=== PATIENT | male | born 1985 | race Native Hawaiian/Other Pacific Islander ===

== ENCOUNTER 2018-06-15 21:21 | Outpatient (CLI) | payer OTHER | END 2018-06-15 21:24 | disposition short-term general hospital (02) | LOC: AMB 21:21 | DX: R07.89 Other chest pain (principal); M79.622 Pain in left upper arm | CPT/HCPCS: A0425; A0427 ==

== ENCOUNTER 2018-06-15 21:35 | Emergency (ER) | payer OTHER ==
[~2018-06-15] VITALS: Ht 162.6 cm; Wt 83.9 kg
[2018-06-15 23:02] LABS: POTASSIUM 3.3 mmol/L (3.6-5.2); SODIUM 143 mmol/L (136-145)
[2018-06-15 23:03] LABS: PLATELET COUNT 415 K/uL (142-355)
[2018-06-16 01:18] VITALS: BP 147/86; TEMP 98.1
== END 2018-06-16 01:19 | disposition home or self-care (01) ==
LOC: ED 21:35
PROVIDERS: Family Medicine
DX: R07.89 Other chest pain (principal); F19.10 Other psychoactive substance abuse, uncomplicated; I48.91 Unspecified atrial fibrillation
CPT/HCPCS: 36415; 80053; 80307; 81000; 82550; 82553; 84484; 85027; 93005; 99283

== ENCOUNTER 2020-11-17 18:48 | Emergency (ER) | payer OTHER ==
[~2020-11-17] VITALS: Ht 165.1 cm; Wt 89.4 kg
[2020-11-17 19:50] VITALS: BP 148/76; TEMP 98.9
== END 2020-11-17 19:59 | disposition home or self-care (01) ==
LOC: ED 18:48
DX: S91.332A Puncture wound without foreign body, left foot, initial encounter (principal); W45.0XXA Nail entering through skin, initial encounter; Y92.89 Other specified places as the place of occurrence of the external cause
CPT/HCPCS: 90715; 96372; 99283; J0690; J1885

== ENCOUNTER 2022-10-05 14:02 | Emergency (ER) | payer BC ==
[~2022-10-05] VITALS: Ht 162.6 cm; Wt 86.2 kg
[2022-10-05 14:10] VITALS: BP 130/81; TEMP 98.4
== END 2022-10-05 15:44 | disposition home or self-care (01) ==
LOC: ED 14:02
DX: S92.355A Nondisplaced fracture of fifth metatarsal bone, left foot, initial encounter for closed fracture (principal); W18.49XA Other slipping, tripping and stumbling without falling, initial encounter; Y92.098 Other place in other non-institutional residence as the place of occurrence of the external cause
CPT/HCPCS: 96372; 99284; J1885